=== PATIENT | female | born 1970 | race Caucasian/White ===

== ENCOUNTER 2023-11-17 08:30 | Day surgery (SDC) | payer BC ==
[2023-11-15 14:52] LABS: BASOPHILS # (AUTO) 0.1 X10'3 (0-0.2); EOSINOPHILS # (AUTO) 0.3 X10'3 (0-0.9); EOSINOPHILS % (AUTO) 2.7 % (0-6); LYMPHOCYTES # (AUTO) 2.9 X10'3 (1.1-4.8); LYMPHOCYTES % (AUTO) 27.5 % (21-51); MEAN CORPUSCULAR HEMOGLOBIN 28.8 PG (27.0-31.0); MEAN CORPUSCULAR HGB CONC 33.1 g/dL (33.0-36.5); MEAN CORPUSCULAR VOLUME 87.2 FL (78-98); MEAN PLATELET VOLUME 8.3 FL (7.4-10.4); MONOCYTES # (AUTO) 0.5 X10'3 (0-0.9); MONOCYTES % (AUTO) 4.4 % (2-12); NEUTROPHILS # (AUTO) 6.7 X10'3 (1.8-7.7); NEUTROPHILS % (AUTO) 64.4 % (42-75); PRE OP HEMATOCRIT 42.2 % (35.0-45.0); PRE OP PLATELET COUNT 347 X10'3 (140-440); PRE OP WHITE BLOOD COUNT 10.4 10'3 (4.8-10.8); RED BLOOD COUNT 4.84 X10'6 (4.20-5.60); RED CELL DISTRIBUTION WIDTH 14.9 % (11.5-14.5)
[2023-11-15 15:02] LABS: ALBUMIN 3.5 G/DL (3.4-5.0); ALBUMIN/GLOBULIN RATIO 0.9 (1.1-1.5); ALKALINE PHOSPHATASE 93 IU/L (46-116); BLOOD UREA NITROGEN 14 MG/DL (7-18); BUN/CREATININE RATIO 17.1 (10.0-20.0); CALCIUM 8.5 MG/DL (8.5-10.1); CHLORIDE 105 MMOL/L (99-107); CREATININE 0.82 MG/DL (0.40-0.90); PRE OP ALT 20 U/L (30-65); PRE OP ANION GAP 8 (8-16); PRE OP AST 17 U/L (10-37); PRE OP BILIRUB, TOTAL 0.3 MG/DL (0.0-1.0); PRE OP GLUCOSE 94 MG/DL (70-104); PRE OP SODIUM 141 MMOL/L (135-145); TOTAL CARBON DIOXIDE 28.4 MMOL/L (24-32); TOTAL PROTEIN 7.6 G/DL (6.4-8.2); eGFR 73 ML/MIN
[~2023-11-17] VITALS: Ht 162.6 cm; Wt 134.4 kg
[2023-11-17] VITALS (18 sets, daily range): BP systolic 116–156; BP diastolic 74–97; PULSE 64–87; RESP 9–19; TEMP 97.8; O2SAT 91–100
[2023-11-17] MEDS: ceFAZolin inj. 3,000 MG in normal saline 100ml IV soln 100 ML IV ONE (05:30)
[~2023-11-17 08:30] MED LIST: ALBU8.5H17 IH; CETI10TA15 PO; LORA-268 PO; ONDA4TAB6 PO; albuterol 2.5 MG/3 ML nebule NEB ONE
[2023-11-17] MEDS: famotidine 20mg tablet PO ONE (09:01)
[2023-11-17] MEDS: ringers solution, lacted 1,000 ML IV SCH (09:01)
[2023-11-17] MEDS ORDERED: sevoflurane 250ml liquid IH ONE (09:26)
[2023-11-17] MEDS ORDERED: midazolam 1 mg/ML 2ml injection ONE (09:32)
[2023-11-17] MEDS ORDERED: fentaNYL /PF 50mcg/ml 5ml ampule ONE (09:35)
[2023-11-17] MEDS ORDERED: LIDOcaine 1% 30ml preserv. free vial ONE (10:03)
[2023-11-17] MEDS ORDERED: BUPIVACAINE liposomal/PF 13.3 MG/ML vial IM ONE ×2 (10:03→15:00)
[2023-11-17] MEDS: LIDOcaine 1% 30ml preserv. free vial IJ ONE (10:05)
[2023-11-17] MEDS ORDERED: propofol inj 20 ML IV ONE (10:07)
[2023-11-17] MEDS ORDERED: LIDOcaine 2% (20mg/ml) 5ml vial ONE (10:07)
[2023-11-17] MEDS ORDERED: dexamethasone sod phosphate 4mg/ml inj. ONE (10:07)
[2023-11-17] MEDS ORDERED: ondansetron/PF 4mg/2ml inj ONE ×2 (10:07→11:58)
[2023-11-17] MEDS ORDERED: morphine 4 MG/ML inj SYRINge IV PRN (11:55)
[2023-11-17] MEDS ORDERED: ringers solution, lacted 1,000 ML IV SCH (11:55)
[2023-11-17] MEDS ORDERED: morphine 2 MG/ML inj. syringe IV PRN (11:55)
[2023-11-17] MEDS: ondansetron/PF 4mg/2ml inj IV PRN (11:59)
[2023-11-17] MEDS: meperidine/PF 25mg/ml syringe IV PRN ×2 (12:01→12:17)
[2023-11-17] MEDS: proCHLORperazine 10 MG/2 ml inj IV PRN (12:15)
== END 2023-11-17 14:29 | disposition home or self-care (01) ==
LOC: PAS 08:30
PROVIDERS: ATTEND Surgery
DX: C50.912 Malignant neoplasm of unspecified site of left female breast (principal); E03.9 Hypothyroidism, unspecified; E66.9 Obesity, unspecified; J44.9 Chronic obstructive pulmonary disease, unspecified; G47.33 Obstructive sleep apnea (adult) (pediatric); I25.2 Old myocardial infarction; Z87.891 Personal history of nicotine dependence; Z79.890 Hormone replacement therapy; Z79.899 Other long term (current) drug therapy; Z90.89 Acquired absence of other organs; Z98.891 History of uterine scar from previous surgery; Z98.890 Other specified postprocedural states; Z68.43 Body mass index [BMI] 50.0-59.9, adult; Z88.1 Allergy status to other antibiotic agents; Z88.2 Allergy status to sulfonamides; Z88.8 Allergy status to other drugs, medicaments and biological substances
CPT/HCPCS: 19301; 36415; 38525; 38900; 76098; 80053; 82948; 85025; 93005; C9290; J0690; J0780; J1100; J2175; J2250; J2405; J2704; J3010; J3490; J7030; J7120; Z7506; Z7508; Z7512; A4215; A4615; A4618; A6258; A6449; A7000